=== PATIENT | female | born 1955 | race Caucasian/White ===

== ENCOUNTER 2018-08-15 14:44 | Inpatient (IN) | payer MEDICAID ==
[~2018-08-15] VITALS: Ht 157.5 cm; Wt 99.1 kg
[2018-08-15 14:50] VITALS: Ht 157.5 cm; Wt 99.1 kg
[2018-08-15 16:15] LABS: BASOPHIL % 0.1 % (0-2); PLATELET COUNT 135 x10^3mcL (130-400); RED CELL DISTRIBUTION WIDTH 15.6 % (11.5-14.5)
[2018-08-15 16:16] LABS: CALCIUM 8.3 mg/dL (8.5-10.1); CARBON DIOXIDE 27.6 mmol/L (21-32); CREATININE SERUM 1.3 mg/dL (0.6-1.0); POTASSIUM SERUM 3.9 mmol/L (3.5-5.1)
[2018-08-15 16:21] LABS: BILIRUBIN TOTAL 0.44 mg/dL (0.20-1.00)
[2018-08-15 16:23] LABS: ALBUMIN 3.2 g/dL (3.4-5.0); TOTAL PROTEIN, SERUM 5.9 g/dL (6.4-8.2)
[2018-08-15] MEDS ORDERED: GOOD SENSE ASPI81 M3 PO (19:39)
[2018-08-15] MEDS ORDERED: LOSARTAN POTASS50 M1 PO (19:39)
[2018-08-15] MEDS ORDERED: HYDROCHLOROTH12.5 M2 PO (19:39)
[2018-08-15] MEDS ORDERED: NATURAL IRON65 MG PO (19:40)
[2018-08-15] MEDS ORDERED: LORADAMED10 M1 PO (19:40)
[2018-08-15] MEDS ORDERED: SIMVASTATIN10 M1 PO (19:40)
[2018-08-15 20:31] VITALS: BP 120/62
[2018-08-15 20:45] LABS: microscopic required? YES; urine erythrocyte TRACE (NEGATIVE)
[2018-08-15 20:53] LABS: AMPHETAMINE QUAL UR NONE DETECTED (See below)
[2018-08-15 21:01] LABS: MAGNESIUM 2.1 mg/dL (1.8-2.4); PHOSPHOROUS 3.6 mg/dL (2.5-4.9)
[2018-08-15 21:06] LABS: CHOLESTEROL/HDL RATIO 3.2
[2018-08-15 21:09] VITALS: BP 120/62
[2018-08-15 21:09] LABS: T3 TOTAL 1.22 ng/mL
[2018-08-15 21:11] LABS: FREE T4 0.96 ng/dL (0.76-1.46); FREE THYROXINE INDEX 2.1 ug/dL (1.4-4.5); T4(THYROXINE) 6.1 ug/dL (4.7-13.3)
[2018-08-16 05:11] VITALS: BP 126/54
[2018-08-16 07:10] LABS: CALCIUM 8.6 mg/dL (8.5-10.1); CARBON DIOXIDE 28.4 mmol/L (21-32); CHLORIDE SERUM 109 mmol/L (98-107); CREATININE SERUM 0.8 mg/dL (0.6-1.0); GFR1 > 60 mL/min; GLUCOSE SERUM 92 mg/dL (74-106); PHOSPHOROUS 2.8 mg/dL (2.5-4.9); POTASSIUM SERUM 4.1 mmol/L (3.5-5.1); SODIUM SERUM 142 mmol/L (136-145)
[2018-08-16 07:32] LABS: IRON 87 ug/dL (50-170)
[2018-08-16 07:33] LABS: TOTAL IRON BINDING CAPACITY 234 ug/dL (250-450)
[2018-08-16 08:42] VITALS: BP 124/51
[2018-08-16 11:47] LABS: BASOPHIL % 0.2 % (0-2); RED BLOOD CELLS 3.36 M/mm3 (4.10-5.10)
[2018-08-16 12:15] LABS: PLATELET COUNT 115 x10^3mcL (130-400); RED CELL DISTRIBUTION WIDTH 15.4 % (11.5-14.5)
[2018-08-16 16:07] VITALS: BP 98/46
[2018-08-16 17:53] VITALS: BP 116/45
[2018-08-16 19:30] LABS: BASOPHIL % 0.2 % (0-2)
[2018-08-16 19:31] LABS: PLATELET COUNT 116 x10^3mcL (130-400); RED CELL DISTRIBUTION WIDTH 15.9 % (11.5-14.5)
[2018-08-16 21:38] VITALS: BP 123/62
[2018-08-17 04:53] VITALS: BP 138/61
[2018-08-17 06:59] LABS: BASOPHIL % 0.1 % (0-2); PLATELET COUNT 130 x10^3mcL (130-400)
[2018-08-17 07:00] LABS: RED CELL DISTRIBUTION WIDTH 15.3 % (11.5-14.5)
[2018-08-17 07:21] LABS: CARBON DIOXIDE 27.1 mmol/L (21-32); CHLORIDE SERUM 107 mmol/L (98-107); CREATININE SERUM 0.6 mg/dL (0.6-1.0); GFR1 > 60 mL/min; GLUCOSE SERUM 92 mg/dL (74-106); PHOSPHOROUS 2.9 mg/dL (2.5-4.9); POTASSIUM SERUM 3.9 mmol/L (3.5-5.1); SODIUM SERUM 142 mmol/L (136-145)
[2018-08-17 08:58] VITALS: BP 135/55
[2018-08-17 12:21] VITALS: BP 149/53
[2018-08-17 16:01] VITALS: BP 117/67
[2018-08-17 20:26] VITALS: BP 124/79
[2018-08-18 04:57] VITALS: BP 163/65
[2018-08-18 06:12] LABS: CARBON DIOXIDE 27.5 mmol/L (21-32); CHLORIDE SERUM 107 mmol/L (98-107); CREATININE SERUM 0.7 mg/dL (0.6-1.0); GFR1 > 60 mL/min; GLUCOSE SERUM 100 mg/dL (74-106); SODIUM SERUM 141 mmol/L (136-145)
[2018-08-18 06:34] LABS: BASOPHIL % 0.2 % (0-2)
[2018-08-18 07:08] LABS: PLATELET COUNT 117 x10^3mcL (130-400); RED CELL DISTRIBUTION WIDTH 15.6 % (11.5-14.5)
[2018-08-18 09:01] VITALS: BP 114/46
[2018-08-18 12:31] VITALS: BP 149/68
[2018-08-18 16:06] VITALS: BP 166/76
[2018-08-18 17:20] VITALS: BP 148/68
[2018-08-18 20:46] VITALS: BP 121/47
[2018-08-19 03:55] VITALS: BP 150/75
[2018-08-19 05:19] VITALS: BP 148/73
[2018-08-19 08:20] VITALS: BP 125/55
[2018-08-19 09:44] VITALS: BP 125/55
[2018-08-19 12:04] VITALS: BP 153/57
[2018-08-19] MEDS ORDERED: PRI20 PO (13:33)
[2018-08-19 13:49] VITALS: BP 153/57
== END 2018-08-19 14:15 | disposition home or self-care (01) | DRG 190 ==
LOC: ED 14:44 → DU 19:12 → EDBEDREQ 19:23 → DU 20:07
PROVIDERS: Emergency Medicine; Internal Medicine; Internal Medicine Gastroenterology
PROC: 0DB68ZX Excision of Stomach, Via Natural or Artificial Opening Endoscopic, Diagnostic (ICD-10-PCS; principal; 2018-08-16 13:30)
DX: I21.A1 Myocardial infarction type 2 (principal); N17.0 Acute kidney failure with tubular necrosis; Z68.41 Body mass index [BMI] 40.0-44.9, adult; E83.51 Hypocalcemia; D69.6 Thrombocytopenia, unspecified; R73.03 Prediabetes; I10 Essential (primary) hypertension; E78.5 Hyperlipidemia, unspecified; D53.9 Nutritional anemia, unspecified; K44.9 Diaphragmatic hernia without obstruction or gangrene; I25.2 Old myocardial infarction; Z79.82 Long term (current) use of aspirin
CPT/HCPCS: 43235; 82962; 83880; 84439; A9500; C9113; J1610; J2250; J2310; J2405; J2785; J3010; J3490; J7030; J8597; Q0092

== ENCOUNTER 2018-10-14 12:15 | Inpatient (IN) | payer SELFPAY ==
[~2018-10-14] VITALS: Ht 157.5 cm; Wt 96.4 kg
[~2018-10-14 12:15] MED LIST: GOOD SENSE ASPI81 M3 PO; HYDROCHLOROTH12.5 M2 PO; LORADAMED10 M1 PO; LOSARTAN POTASS50 M1 PO; NATURAL IRON65 MG PO; PRI20 PO; SIMVASTATIN10 M1 PO
[2018-10-14 12:25] VITALS: Ht 157.5 cm; Wt 96.4 kg
[2018-10-14 14:27] LABS: BASOPHIL % 0.5 % (0-2); PLATELET COUNT 187 x10^3mcL (130-400)
[2018-10-14 14:29] LABS: RED CELL DISTRIBUTION WIDTH 17.2 % (11.5-14.5)
[2018-10-14 14:49] LABS: CALCIUM 9.5 mg/dL (8.5-10.1); CARBON DIOXIDE 29.9 mmol/L (21-32); CHLORIDE SERUM 105 mmol/L (98-107); CREATININE SERUM 0.7 mg/dL (0.6-1.0); GFR1 > 60 mL/min; GLUCOSE SERUM 89 mg/dL (74-106); POTASSIUM SERUM 4.4 mmol/L (3.5-5.1); SODIUM SERUM 142 mmol/L (136-145)
[2018-10-14 14:54] LABS: ALBUMIN 4.1 g/dL (3.4-5.0); ALKALINE PHOSPHATASE 80 U/L (46-116); ALT/SGPT 25 U/L (14-59); AST/SGOT 23 U/L (15-37); BILIRUBIN TOTAL 0.3 mg/dL (0.20-1.00); TOTAL PROTEIN, SERUM 7.4 g/dL (6.4-8.2)
[2018-10-14 16:00] LABS: MAGNESIUM 2.2 mg/dL (1.8-2.4); PHOSPHOROUS 3.9 mg/dL (2.5-4.9)
[2018-10-14 17:11] VITALS: BP 166/73
[2018-10-14 18:44] VITALS: BP 129/55
[2018-10-14 19:10] VITALS: BP 128/58
[2018-10-15 06:10] VITALS: BP 151/43
[2018-10-15 06:22] LABS: microscopic required? NO
[2018-10-15 06:37] VITALS: BP 159/67
[2018-10-15 07:31] LABS: UA SPECIFIC GRAVITY 1.015 (1.005-1.035); urine erythrocyte NEGATIVE (NEGATIVE)
[2018-10-15 07:32] LABS: BASOPHIL % 0.4 % (0-2); PLATELET COUNT 168 x10^3mcL (130-400)
[2018-10-15 07:37] LABS: RED CELL DISTRIBUTION WIDTH 17.4 % (11.5-14.5)
[2018-10-15 07:46] LABS: CALCIUM 9.7 mg/dL (8.5-10.1); CARBON DIOXIDE 29.6 mmol/L (21-32); CHLORIDE SERUM 105 mmol/L (98-107); CREATININE SERUM 0.6 mg/dL (0.6-1.0); GFR1 > 60 mL/min; GLUCOSE SERUM 86 mg/dL (74-106); MAGNESIUM 2.1 mg/dL (1.8-2.4); PHOSPHOROUS 3.6 mg/dL (2.5-4.9); POTASSIUM SERUM 4.2 mmol/L (3.5-5.1); SODIUM SERUM 142 mmol/L (136-145)
[2018-10-15 07:55] LABS: AMPHETAMINE QUAL UR NONE DETECTED (See below)
[2018-10-15 09:19] VITALS: BP 149/56
[2018-10-15 12:50] VITALS: BP 171/51
[2018-10-15 17:15] VITALS: BP 164/94
[2018-10-15 21:17] VITALS: BP 145/71
[2018-10-16 05:25] VITALS: BP 101/52
[2018-10-16 09:18] VITALS: BP 138/63
[2018-10-16 13:43] VITALS: BP 148/71
[2018-10-16 17:46] VITALS: BP 148/78
[2018-10-16 21:05] VITALS: BP 129/55
[2018-10-17 05:07] VITALS: BP 142/50
[2018-10-17 09:40] VITALS: BP 142/59
[2018-10-17 13:21] VITALS: BP 161/73
[2018-10-17 17:43] VITALS: BP 168/74
[2018-10-17 20:52] VITALS: BP 151/60
[2018-10-18 05:28] VITALS: BP 142/85
[2018-10-18 09:00] VITALS: BP 143/66
== END 2018-10-18 12:30 | disposition left against medical advice (07) | DRG 280 ==
LOC: ED 12:15 → DU 15:22
PROVIDERS: Emergency Medicine; ADMIT Family Medicine
DX: I21.A1 Myocardial infarction type 2 (principal); N17.0 Acute kidney failure with tubular necrosis; I10 Essential (primary) hypertension; E78.00 Pure hypercholesterolemia, unspecified; E66.9 Obesity, unspecified; D64.9 Anemia, unspecified; Z60.2 Problems related to living alone; Z53.21 Procedure and treatment not carried out due to patient leaving prior to being seen by health care provider; E78.5 Hyperlipidemia, unspecified; Z68.39 Body mass index [BMI] 39.0-39.9, adult; I25.2 Old myocardial infarction; Z90.710 Acquired absence of both cervix and uterus; Z79.899 Other long term (current) drug therapy; Z79.82 Long term (current) use of aspirin; Z83.3 Family history of diabetes mellitus; Z82.49 Family history of ischemic heart disease and other diseases of the circulatory system
CPT/HCPCS: 83880; J1650; J7030; Q0092

== ENCOUNTER 2020-07-22 12:42 | Emergency (ER) | payer OTHER ==
[~2020-07-22] VITALS: Ht 157.5 cm; Wt 107.0 kg
[2020-07-22 12:57] VITALS: Ht 157.5 cm; Wt 107.0 kg
[2020-07-22 13:58] LABS: BASOPHIL % 0.3 % (0-2); PLATELET COUNT 158 x10^3mcL (130-400)
[2020-07-22 15:23] LABS: CARBON DIOXIDE 26.2 mmol/L (21-32); CHLORIDE SERUM 102 mmol/L (98-107); CREATININE SERUM 0.7 mg/dL (0.6-1.0); GFR1 > 60 mL/min; GLUCOSE SERUM 122 mg/dL (74-106); POTASSIUM SERUM 4.1 mmol/L (3.5-5.1); SODIUM SERUM 136 mmol/L (136-145)
[2020-07-22 15:27] LABS: ALBUMIN 3.6 g/dL (3.4-5.0); ALKALINE PHOSPHATASE 95 U/L (46-116); ALT/SGPT 25 U/L (14-59); AST/SGOT 22 U/L (15-37); TOTAL PROTEIN, SERUM 7.2 g/dL (6.4-8.2)
[2020-07-22 16:46] VITALS: BP 157/90
== END 2020-07-22 16:46 | disposition home or self-care (01) ==
LOC: ED 12:42
PROVIDERS: Emergency Medicine
DX: R42 Dizziness and giddiness (principal); R11.0 Nausea; R07.89 Other chest pain; R20.2 Paresthesia of skin; I10 Essential (primary) hypertension; E78.00 Pure hypercholesterolemia, unspecified
CPT/HCPCS: 83880; J8597; Q0092

== ENCOUNTER 2020-12-06 23:33 | Inpatient (IN) | payer OTHER ==
[~2020-12-06] VITALS: Ht 165.1 cm; Wt 109.8 kg
[2020-12-06 23:53] VITALS: Ht 165.1 cm; Wt 109.8 kg
[2020-12-07] VITALS (7 sets, daily range): BP systolic 104–133; BP diastolic 53–81
[2020-12-07 01:21] LABS: BASOPHIL % 0.3 % (0.2-1.3); PLATELET COUNT 144 x10^3mcL (179-408)
[2020-12-07 01:32] LABS: RED CELL DISTRIBUTION WIDTH 19.7 % (12.3-17.7)
[2020-12-07 01:52] LABS: CALCIUM 9.2 mg/dL (8.5-10.1); CARBON DIOXIDE 21.8 mmol/L (21-32); CHLORIDE SERUM 109 mmol/L (98-107); CREATININE SERUM 1.5 mg/dL (0.6-1.0); GFR1 37 mL/min; GLUCOSE SERUM 154 mg/dL (74-106); POTASSIUM SERUM 4.1 mmol/L (3.5-5.1); SODIUM SERUM 142 mmol/L (136-145)
[2020-12-07 01:57] LABS: ALKALINE PHOSPHATASE 62 U/L (46-116); ALT/SGPT 17 U/L (14-59); AST/SGOT 24 U/L (15-37); BILIRUBIN TOTAL 0.21 mg/dL (0.20-1.00)
[2020-12-07 02:09] LABS: rbc morphology (normal/abnorm) ABNORMAL (NORMAL)
[2020-12-07 02:18] LABS: ALBUMIN 3.1 g/dL (3.4-5.0); TOTAL PROTEIN, SERUM 5.8 g/dL (6.4-8.2)
[2020-12-07] MEDS ORDERED: SIMVASTATIN5 M2 PO (04:38)
[2020-12-07] MEDS ORDERED: AMLODIPINE BES1 TAB PO (04:39)
[2020-12-07] MEDS ORDERED: BAY (04:39)
[2020-12-07] MEDS ORDERED: LOSARTAN POTASS50 M1 GT (04:39)
[2020-12-07] MEDS ORDERED: IBU600 M2 (04:39)
[2020-12-07 05:53] LABS: BASOPHIL % 0.6 % (0.2-1.3)
[2020-12-07 05:54] LABS: IRON 6 ug/dL (50-170); TOTAL IRON BINDING CAPACITY 333 ug/dL (250-450)
[2020-12-07 06:04] LABS: T3 TOTAL 0.82 ng/mL
[2020-12-07 06:09] LABS: CALCIUM 8.3 mg/dL (8.5-10.1); CARBON DIOXIDE 24.1 mmol/L (21-32); CREATININE SERUM 1.2 mg/dL (0.6-1.0); MAGNESIUM 2.1 mg/dL (1.8-2.4); PHOSPHOROUS 3.6 mg/dL (2.5-4.9); POTASSIUM SERUM 3.9 mmol/L (3.5-5.1)
[2020-12-07 06:17] LABS: CHOLESTEROL/HDL RATIO 3.7; PLATELET COUNT 106 x10^3mcL (179-408); RED CELL DISTRIBUTION WIDTH 19.2 % (12.3-17.7)
[2020-12-07 06:18] LABS: UA SPECIFIC GRAVITY <=1.005 (1.005-1.035); microscopic required? YES; urine erythrocyte 1+ (NEGATIVE)
[2020-12-07 06:21] LABS: RED BLOOD CELLS 1.8 M/mm3 (4.10-5.10)
[2020-12-07 06:25] LABS: FREE T4 0.96 ng/dL (0.76-1.46); FREE THYROXINE INDEX 2.5 ug/dL (1.4-4.5); T4(THYROXINE) 6.7 ug/dL (4.7-13.3)
[2020-12-07 20:31] LABS: rbc morphology (normal/abnorm) NORMAL (NORMAL)
[2020-12-08 01:31] VITALS: BP 120/53
[2020-12-08 05:22] VITALS: BP 127/60
[2020-12-08 08:58] VITALS: BP 109/54
[2020-12-08 12:22] LABS: CALCIUM 8.7 mg/dL (8.5-10.1); CARBON DIOXIDE 26.2 mmol/L (21-32); POTASSIUM SERUM 3.5 mmol/L (3.5-5.1)
[2020-12-08 13:35] VITALS: BP 146/51
[2020-12-08 17:02] VITALS: BP 124/80
[2020-12-08 20:57] VITALS: BP 115/58
[2020-12-09 04:25] VITALS: BP 143/51
[2020-12-09 06:53] LABS: BASOPHIL % 0.4 % (0.2-1.3); CALCIUM 8.4 mg/dL (8.5-10.1); CARBON DIOXIDE 27.3 mmol/L (21-32); CHLORIDE SERUM 104 mmol/L (98-107); CREATININE SERUM 0.9 mg/dL (0.6-1.0); GFR1 > 60 mL/min; GLUCOSE SERUM 98 mg/dL (74-106); MAGNESIUM 1.9 mg/dL (1.8-2.4); PHOSPHOROUS 3.8 mg/dL (2.5-4.9); POTASSIUM SERUM 3.3 mmol/L (3.5-5.1); SODIUM SERUM 139 mmol/L (136-145)
[2020-12-09 07:38] LABS: PLATELET COUNT 114 x10^3mcL (179-408); RED CELL DISTRIBUTION WIDTH 20.8 % (12.3-17.7)
[2020-12-09 08:29] VITALS: BP 123/50
[2020-12-09 11:45] VITALS: BP 120/51
[2020-12-09 16:42] VITALS: BP 125/56
[2020-12-09 19:32] VITALS: BP 119/57; BP 124/77
[2020-12-10 06:28] VITALS: BP 128/64
[2020-12-10 06:58] LABS: BASOPHIL % 0.3 % (0.2-1.3)
[2020-12-10 07:11] LABS: CALCIUM 8.6 mg/dL (8.5-10.1); CARBON DIOXIDE 27.7 mmol/L (21-32); CHLORIDE SERUM 101 mmol/L (98-107); CREATININE SERUM 0.8 mg/dL (0.6-1.0); GFR1 > 60 mL/min; GLUCOSE SERUM 97 mg/dL (74-106); MAGNESIUM 1.8 mg/dL (1.8-2.4); PHOSPHOROUS 3.7 mg/dL (2.5-4.9); POTASSIUM SERUM 3.5 mmol/L (3.5-5.1); SODIUM SERUM 136 mmol/L (136-145)
[2020-12-10 07:18] LABS: PLATELET COUNT 126 x10^3mcL (179-408); RED CELL DISTRIBUTION WIDTH 20.8 % (12.3-17.7)
[2020-12-10 08:00] VITALS: BP 109/57
[2020-12-10 11:57] VITALS: BP 114/73
[2020-12-10] MEDS ORDERED: FEROSUL325 MG PO (12:52)
[2020-12-10] MEDS ORDERED: MIRALAX17 GM PO (13:09)
== END 2020-12-10 14:59 | disposition home or self-care (01) | DRG 253 ==
LOC: ED 23:33 → IC 12-07 03:15 → DU 12-07 03:15 → EDBEDREQ 12-07 03:32 → IC 12-07 08:41 → DU 12-07 17:49
PROVIDERS: Emergency Medicine; Internal Medicine Gastroenterology; ADMIT Internal Medicine; ATTEND Internal Medicine
PROC: 0DJ08ZZ Inspection of Upper Intestinal Tract, Via Natural or Artificial Opening Endoscopic (ICD-10-PCS; 2020-12-07)
PROC: 30233N1 Transfusion of Nonautologous Red Blood Cells into Peripheral Vein, Percutaneous Approach (ICD-10-PCS; principal; 2020-12-07 13:30)
PROC: 0W3P8ZZ Control Bleeding in Gastrointestinal Tract, Via Natural or Artificial Opening Endoscopic (ICD-10-PCS; 2020-12-08 09:00)
DX: K92.2 Gastrointestinal hemorrhage, unspecified (principal); N17.0 Acute kidney failure with tubular necrosis; I21.A1 Myocardial infarction type 2; D64.9 Anemia, unspecified; Z20.822 Contact with and (suspected) exposure to COVID-19; E87.2 Acidosis; E66.9 Obesity, unspecified; K44.9 Diaphragmatic hernia without obstruction or gangrene; I10 Essential (primary) hypertension; E78.5 Hyperlipidemia, unspecified; F41.9 Anxiety disorder, unspecified; I25.2 Old myocardial infarction; Z68.41 Body mass index [BMI] 40.0-44.9, adult; Z79.82 Long term (current) use of aspirin
CPT/HCPCS: 43235; 45378; 82962; 84439; 97530-GP; C9113; G0378; J0171; J0885-EC; J1200; J1610; J1940; J2250; J2310; J2405; J2765; J2916; J3010; J3480; J3490; J7030; J7040; J7050; P9016; Q0163; Q9967